=== PATIENT | male | born 1970 | race Caucasian/White ===

== ENCOUNTER 2018-05-26 11:30 | Day surgery (SDC) | payer BC ==
[~2018-05-26] VITALS: Ht 175.3 cm; Wt 94.5 kg
[~2018-05-26 11:30] MED LIST: BUPIVACAINE 0.25% ONE; BUPIVACAINE/PF-EPI 0.5% 1:200K ONE; EPINEPHRINE 1 MG/ML, 1ML ONE; EPINEPHRINE TOPICAL SOLN 1 MG/ML, 30ML ONE; None per pt
[2018-05-26] MEDS ORDERED: IBUP-1223 PO (11:46)
[2018-05-26] MEDS ORDERED: HYDR-3240 PO ×2 (11:46)
[2018-05-26] MEDS ORDERED: GABAPENTIN 300 MG CAPSULE PO ONE (12:00)
[2018-05-26] MEDS ORDERED: ACETAMINOPHEN 500 MG TABLET PO ONE (12:00)
[2018-05-26] MEDS ORDERED: SCOPOLAMINE PATCH, 1.5MG PATCH.TD72 TD ONE (12:00)
[2018-05-26 12:02] VITALS: BP 136/85
[2018-05-26] MEDS ORDERED: FENTANYL PF 250 MCG/5ML ONE (12:30)
[2018-05-26] MEDS ORDERED: MIDAZOLAM 1 MG/ML, 2ML ONE (12:30)
[2018-05-26] MEDS ORDERED: LACTATED RINGERS 1,000 ML IV SCH (12:43)
[2018-05-26] MEDS ORDERED: ROCURONIUM 10 MG/ML,10ML ONE (14:17)
[2018-05-26] MEDS ORDERED: SUCCINYLCHOLINE 20 MG/ML, 10ML ONE (14:17)
[2018-05-26] MEDS ORDERED: CEFAZOLIN 1,000 MG ONE (14:17)
[2018-05-26] MEDS ORDERED: PROPOFOL 10 MG/ML, 20ML ONE (14:17)
[2018-05-26] MEDS ORDERED: ONDANSETRON 2MG/ML, 2ML ONE (14:17)
[2018-05-26] MEDS ORDERED: MEPERIDINE/PF 25MG/0.5ML IVPush PRN (15:00)
[2018-05-26] MEDS ORDERED: ONDANSETRON 2MG/ML, 2ML IVPush PRN (15:00)
[2018-05-26] MEDS ORDERED: METOCLOPRAMIDE 5 MG/ML, 2ML IV PRN (15:00)
[2018-05-26] MEDS ORDERED: HYDROmorphone 1 MG/ML, 1ML IV PRN (15:00)
[2018-05-26] MEDS ORDERED: LABETALOL 5MG/ML, 20ML IV PRN (15:00)
[2018-05-26] MEDS ORDERED: hydrALAzine 20 MG/ML, 1ML IV PRN (15:00)
[2018-05-26] MEDS ORDERED: OXYcodone 5 MG/5 ML ORAL.SOL UDC PO PRN (15:00)
[2018-05-26] MEDS ORDERED: ALBUTEROL SULFATE 2.5 MG/3 ML NPPB PRN (15:00)
[2018-05-26] MEDS ORDERED: KETOROLAC 30 MG/1 ML IV PRN (15:00)
[2018-05-26] MEDS ORDERED: FENTANYL PF 100 MCG/2ML IV PRN (15:00)
[2018-05-26] MEDS ORDERED: PROMETHAZINE 25 MG/ML, 1ML IV PRN (15:00)
== END 2018-05-26 18:35 | disposition home or self-care (01) ==
LOC: OUT 11:30
PROVIDERS: ATTEND Orthopaedic Surgery
DX: S43.431A Superior glenoid labrum lesion of right shoulder, initial encounter (principal); S46.011A Strain of muscle(s) and tendon(s) of the rotator cuff of right shoulder, initial encounter; M75.41 Impingement syndrome of right shoulder; M75.21 Bicipital tendinitis, right shoulder; W11.XXXA Fall on and from ladder, initial encounter; Y93.89 Activity, other specified; Y92.89 Other specified places as the place of occurrence of the external cause; Y99.8 Other external cause status
CPT/HCPCS: 29823; 29826; 29827; 29828; 64415; C1713; J0171; J0330; J0690; J2250; J2405; J2704; J3010; J3490; J7120